=== PATIENT | male | born 2000 | race Caucasian/White ===

== ENCOUNTER → 2021-03-28 | Outpatient (CLI) | payer OTHER | END | disposition home or self-care (01) | LOC: RAH 11:01 | PROVIDERS: ATTEND Internal Medicine Critical Care Medicine | DX: S63.630 Sprain of interphalangeal joint of right index finger (principal); R60.1 Generalized edema; X58.XXXD Exposure to other specified factors, subsequent encounter | CPT/HCPCS: 73218 ==